=== PATIENT | female | born 1975 | race Caucasian/White ===

== ENCOUNTER 2017-12-26 09:11 | Inpatient (IN) | payer MEDICAID, OTHER ==
[~2017-12-26] VITALS: Ht 167.6 cm; Wt 88.0 kg
--- NOTE | 2017-12-26 09:12 | ER Report ---
History and Physical Time Seen By MD: 09:27 HPI/ROS CHIEF COMPLAINT: Abdominal pain HISTORY OF PRESENT ILLNESS: Patient is a 42-year-old female who is status post gastric bypass that was performed approximately 8 years ago she subsequently had an intestinal obstruction and required surgical treatment at that time. She she's been having episodes of abdominal pain however this morning she has severe epigastric pain associated with nausea no vomiting. She states this feels similar to her prior obstruction. She denies any chest pain or shortness of breath. She denies fevers or chills. REVIEW OF SYSTEMS: Constitutional: No fever, no chills. Eyes: No discharge. ENT: No sore throat. Cardiovascular: No chest pain, no palpitations. Respiratory: No cough, no shortness of breath. Gastrointestinal: Epigastric abdominal pain Genitourinary: No hematuria. Musculoskeletal: No back pain. Skin: No rashes. Neurological: No headache. Allergies: Coded Allergies: NSAIDS (Non-Steroidal Anti-Inflamma (Verified Allergy, Mild, NAUSEA/VOMITING, 03/10/15) Past Medical/Surgical History Patient has a past medical and surgical history of anemia, GI bleed, gastric bypass. Hx Smoking: No Exposure to Second Hand Smoke?: No Hx Substance Use Disorder: No Constitutional Vital Sign - Last 24 Hours 12/26/17 09:19 Temp 97.5 Pulse 83 Resp 18 B/P (MAP) 128/82 Pulse Ox 94 O2 Delivery Room Air Physical Exam General Appearance: Awake alert nontoxic no signs of respiratory distress. Eyes: Pupils equal and round no pallor or injection. ENT, Mouth: Mucous membranes are moist. Respiratory: There are no retractions, lungs are clear to auscultation. Cardiovascular: Regular rate and rhythm. Gastrointestinal: Epigastric abdominal pain to palpation. Neurological: Awake and alert Skin: Warm and dry, no rashes. Musculoskeletal: Neck is supple non tender. Extremities are nontender, nonswollen and have full range of motion. Medical Decision Making Data Points Result Diagram: 12/26/1721 12/26/17 0921 Laboratory Hematology Test 12/26/17 09:21 12/26/17 11:05 Red Blood Count 5.31 M/uL (4.17-5.56) Mean Corpuscular Volume 80.2 fL (80.0-96.0) Mean Corpuscular Hemoglobin 26.9 pg (26.0-33.0) Mean Corpuscular Hemoglobin Concent 33.6 g/dL (32.0-36.0) Red Cell Distribution Width 14.0 % (11.5-14.5) Mean Platelet Volume 9.7 fL (7.2-11.1) Neutrophils (%) (Auto) 56.9 % (39.4-72.5) Lymphocytes (%) (Auto) 32.7 % (17.6-49.6) Monocytes (%) (Auto) 6.7 % (4.1-12.4) Eosinophils (%) (Auto) 2.7 % (0.4-6.7) Basophils (%) (Auto) 1.0 % (0.3-1.4) Nucleated RBC Relative Count (auto) 0.0 /100WBC Neutrophils # (Auto) 3.8 K/uL (2.0-7.4) Lymphocytes # (Auto) 2.2 K/uL (1.3-3.6) Monocytes # (Auto) 0.4 K/uL (0.3-1.0) Eosinophils # (Auto) 0.2 K/uL (0.0-0.5) Basophils # (Auto) 0.1 K/uL (0.0-0.1) Nucleated RBC Absolute Count (auto) 0.00 K/uL Peripheral Blood Smear No Y/N Sodium Level 140 mmol/L (137-145) Potassium Level 4.0 mmol/L (3.5-5.0) Chloride Level 108 mmol/L (98-107) Carbon Dioxide Level 20 mmol/L (22-31) Blood Urea Nitrogen 15 mg/dl (7-18) Creatinine 0.70 mg/dl (0.52-1.04) Glomerular Filtration Rate Calc > 60.0 Random Glucose 91 mg/dl (75-110) Calcium Level 9.1 mg/dl (8.4-10.2) Total Bilirubin 0.5 mg/dl (0.2-1.3) Aspartate Amino Transf (AST/SGOT) 20 U/L (0-35) Alanine Aminotransferase (ALT/SGPT) 23 U/L (0-56) Alkaline Phosphatase 70 U/L (0-126) Total Protein 7.2 g/dl (6.3-8.2) Albumin 4.3 g/dl (3.5-5.0) Lipase 224 U/L (23-300) Human Chorionic Gonadotropin, Qual Negative (NEGATIVE) Urine Color Straw Urine Clarity Clear Urine pH 5.0 pH (4.8-9.5) Urine Specific [place] 1.051 Urine Protein Negative mg/dL (NEGATIVE) Urine Glucose (UA) Negative mg/dL (NEGATIVE) Urine Ketones Negative mg/dL (NEGATIVE) Urine Blood Negative (NEGATIVE) Urine Nitrite Negative (NEGATIVE) Urine Bilirubin Negative (NEGATIVE) Urine Urobilinogen Negative mg/dL (0.2-1.9) Urine Leukocyte Esterase Trace (NEGATIVE) Urine RBC 3 /HPF (0-2/HPF) Urine WBC <1 /HPF (0-5/HPF) Urine Squamous Epithelial Cells Many /LPF (</=FEW) Urine Bacteria Few /HPF (NONE-FEW) Urine Mucus None /HPF (NONE-FEW) Chemistry Test 12/26/17 09:21 12/26/17 11:05 White Blood Count 6.6 k/uL (4.5-11.0) Red Blood Count 5.31 M/uL (4.17-5.56) Hemoglobin 14.3 g/dL (12.0-16.0) Hematocrit 42.6 % (34.0-47.0) Mean Corpuscular Volume 80.2 fL (80.0-96.0) Mean Corpuscular Hemoglobin 26.9 pg (26.0-33.0) Mean Corpuscular Hemoglobin Concent 33.6 g/dL (32.0-36.0) Red Cell Distribution Width 14.0 % (11.5-14.5) Platelet Count 235 K/uL (150-450) Mean Platelet Volume 9.7 fL (7.2-11.1) Neutrophils (%) (Auto) 56.9 % (39.4-72.5) Lymphocytes (%) (Auto) 32.7 % (17.6-49.6) Monocytes (%) (Auto) 6.7 % (4.1-12.4) Eosinophils (%) (Auto) 2.7 % (0.4-6.7) Basophils (%) (Auto) 1.0 % (0.3-1.4) Nucleated RBC Relative Count (auto) 0.0 /100WBC Neutrophils # (Auto) 3.8 K/uL (2.0-7.4) Lymphocytes # (Auto) 2.2 K/uL (1.3-3.6) Monocytes # (Auto) 0.4 K/uL (0.3-1.0) Eosinophils # (Auto) 0.2 K/uL (0.0-0.5) Basophils # (Auto) 0.1 K/uL (0.0-0.1) Nucleated RBC Absolute Count (auto) 0.00 K/uL Peripheral Blood Smear No Y/N Glomerular Filtration Rate Calc > 60.0 Calcium Level 9.1 mg/dl (8.4-10.2) Total Bilirubin 0.5 mg/dl (0.2-1.3) Aspartate Amino Transf (AST/SGOT) 20 U/L (0-35) Alanine Aminotransferase (ALT/SGPT) 23 U/L (0-56) Alkaline Phosphatase 70 U/L (0-126) Total Protein 7.2 g/dl (6.3-8.2) Albumin 4.3 g/dl (3.5-5.0) Lipase 224 U/L (23-300) Human Chorionic Gonadotropin, Qual Negative (NEGATIVE) Urine Color Straw Urine Clarity Clear Urine pH 5.0 pH (4.8-9.5) Urine Specific [place] 1.051 Urine Protein Negative mg/dL (NEGATIVE) Urine Glucose (UA) Negative mg/dL (NEGATIVE) Urine Ketones Negative mg/dL (NEGATIVE) Urine Blood Negative (NEGATIVE) Urine Nitrite Negative (NEGATIVE) Urine Bilirubin Negative (NEGATIVE) Urine Urobilinogen Negative mg/dL (0.2-1.9) Urine Leukocyte Esterase Trace (NEGATIVE) Urine RBC 3 /HPF (0-2/HPF) Urine WBC <1 /HPF (0-5/HPF) Urine Squamous Epithelial Cells Many /LPF (</=FEW) Urine Bacteria Few /HPF (NONE-FEW) Urine Mucus None /HPF (NONE-FEW) Urinalysis Test 12/26/17 11:05 Urine Color Straw Urine Clarity Clear Urine pH 5.0 pH (4.8-9.5) Urine Specific [place] 1.051 Urine Protein Negative mg/dL (NEGATIVE) Urine Glucose (UA) Negative mg/dL (NEGATIVE) Urine Ketones Negative mg/dL (NEGATIVE) Urine Blood Negative (NEGATIVE) Urine Nitrite Negative (NEGATIVE) Urine Bilirubin Negative (NEGATIVE) Urine Urobilinogen Negative mg/dL (0.2-1.9) Urine Leukocyte Esterase Trace (NEGATIVE) Urine RBC 3 /HPF (0-2/HPF) Urine WBC <1 /HPF (0-5/HPF) Urine Squamous Epithelial Cells Many /LPF (</=FEW) Urine Bacteria Few /HPF (NONE-FEW) Urine Mucus None /HPF (NONE-FEW) EKG/Imaging Imaging FACILITY: [facility] PATIENT NAME: Dayanara Vidales : 1975 MR: [id number] V: [id number] EXAM DATE: ORDERING PHYSICIAN: JAIRO CARRANZA TECHNOLOGIST: Location: [facility] [place] Patient: Dayanara Vidales : 1975 Visit/Account:[id number] Date of Sevice: 12/26/2017 EXAMINATION: CT Abdomen and Pelvis With Contrast 12/26/2017 9:28 AM HISTORY: ab pain; hx gastric bypass TECHNIQUE: Spiral scan was through the abdomen and pelvis during injection of nonionic iodinated intravenous contrast. Contrast: 75 mL of IV Isovue 370. One of the following dose optimization techniques was utilized in the performance of this exam: Automated exposure control; adjustment of the mA and/or kV according to the patient's size; or use of an iterative reconstruction technique. Specific details can be referenced in the facility's radiology CT exam operational policy. COMPARISON STUDIES: 03/10/2015. FINDINGS: Liver / biliary: Prior cholecystectomy. No acute finding. Liver is borderline prominent. Pancreas: negative Spleen: negative Adrenal glands: negative Kidneys / retroperitoneum: negative Pelvic structures: Prior hysterectomy. Normal functional follicles in the left ovary. Right ovary may be absent. Bowel / peritoneum / mesenteries: Previous gastric bypass. Unremarkable post bypass appearance in the left upper quadrant. There are disproportionally prominent loops of small bowel in the lower midabdomen which contain fluid and food material. There is a transition from fluid-filled containing bowel to a short segment of collapsed distal ileum just before the ileocecal valve and twisting or overlying of mesentery associated with this. Cecum and ileocecal valve are in the right midabdomen, but in a similar position to previous consistent with a mobile cecum rather than a volvulus. Normal appendix. There is fecal material in the colon. No ascites or free air. Vessels: negative Musculoskeletal / Body wall: Eventration in the ventral upper abdominal wall without misha hernia. Tiny fatty umbilical hernia. Lymph node assessment: negative Lower chest: negative IMPRESSION: 1. Previous gastric bypass. 2. Mildly prominent fluid containing distal small bowel loops with transition along the terminal ileum before the ileocecal valve associated with twisting or whirling of the mesentery consistent with early or incomplete mechanical obstruction since there is still a fair amount of fecal material in the colon. There is no similar proximal transition to clearly indicate that this is a closed loop process. Report Dictated By: Matteo Chavarria MD at 12/26/2017 10:29 AM Report E-Signed By: Matteo Chavarria MD at 12/26/2017 10:45 AM WSN:[email or web address] ED Course/Re-evaluation Clinical Indication for ER IV: Hydration, IV Access ED Course 12/26/2017 9:34:09 am plan at this time will be abdominal workup including CT scan of the abdomen and pelvis. I will make the patient nothing by mouth. We'll give IV fluids, Zofran and pain medication. Re-evaluation Patient with recurring pain and nausea will premedicate. CT scan shows early partial small bowel instruction we'll admit to medicine. Decision to Disposition Date: Dec 26, 2017 Decision to Disposition Time: 11:06 Depart Departure Latest Vital Signs Vital Signs Date Time Temp Pulse Resp B/P (MAP) Pulse Ox O2 Delivery O2 Flow Rate FiO2 12/26/17 09:19 97.5 83 18 128/82 94 Room Air Impression: Primary Impression: Partial small bowel obstruction Condition: Condition Unchanged Disposition: Admitted from ER (to [facility]) JAIRO CARRANZA MD Dec 26, 2017 09:12
[2017-12-26] MEDS ORDERED: NS(*) 0.9% 1000 ML BAG 1,000 ML IV ONE (09:28)
[2017-12-26] MEDS ORDERED: MORPHINE 4 MG/ML SDV IVP ONE ×4 (09:30→11:55)
[2017-12-26] MEDS ORDERED: ONDANSETRON 4 MG/2 ML VIAL IVP ONE (09:30)
[2017-12-26 09:38] LABS: PLATELET COUNT, AUTOMATED 235 K/uL (150-450)
[2017-12-26] MEDS ORDERED: IOPAMIDOL 76% 75 ML INFUS BTL 75 ML ONE (09:41)
[2017-12-26] MEDS ORDERED: DICYCLOMINE HCL 10 MG CAP PO ONE (10:35)
[2017-12-26] MEDS ORDERED: DICYCLOMINE HCL 10 MG CAP ONE (10:38)
--- NOTE | 2017-12-26 10:49 | RADIOLOGY IMAGING REPORT ---
FACILITY: [facility] - [place] PATIENT NAME: Dayanara Vidales : 1975 MR: [id number] V: [id number] EXAM DATE: ORDERING PHYSICIAN: JAIRO CARRANZA TECHNOLOGIST: [facility] Patient: Dayanara Vidales : 1975 Visit/Account:[id number] Date of Sevice: 12/26/2017 EXAMINATION: CT Abdomen and Pelvis With Contrast 12/26/2017 9:28 AM HISTORY: ab pain; hx gastric bypass TECHNIQUE: Spiral scan was through the abdomen and pelvis during injection of nonionic iodinated in travenous contrast. Contrast: 75 mL of IV Isovue 370. One of the following dose optimization techniques was utilized in the performance of this exam: Autom ated exposure control; adjustment of the mA and/or kV according to the patient's size; or use of an i terative reconstruction technique. Specific details can be referenced in the facility's radiology C T exam operational policy. COMPARISON STUDIES: 03/10/2015. FINDINGS: Liver / biliary: Prior cholecystectomy. No acute finding. Liver is borderline prominent. Pancreas: negative Spleen: negative Adrenal glands: negative Kidneys / retroperitoneum: negative Pelvic structures: Prior hysterectomy. Normal functional follicles in the left ovary. Right ovar y may be absent. Bowel / peritoneum / mesenteries: Previous gastric bypass. Unremarkable post bypass appearance in th e left upper quadrant. There are disproportionally prominent loops of small bowel in the lower midab domen which contain fluid and food material. There is a transition from fluid-filled containing tiesha l to a short segment of collapsed distal ileum just before the ileocecal valve and twisting or overly ing of mesentery associated with this. Cecum and ileocecal valve are in the right midabdomen, but in a similar position to previous consistent with a mobile cecum rather than a volvulus. Normal append ix. There is fecal material in the colon. No ascites or free air. Vessels: negative Musculoskeletal / Body wall: Eventration in the ventral upper abdominal wall without misha hernia. T iny fatty umbilical hernia. Lymph node assessment: negative Lower chest: negative IMPRESSION: 1. Previous gastric bypass. 2. Mildly prominent fluid containing distal small bowel loops with transition along the terminal ile um before the ileocecal valve associated with twisting or whirling of the mesentery consistent with e elijah or incomplete mechanical obstruction since there is still a fair amount of fecal material in the colon. There is no similar proximal transition to clearly indicate that this is a closed loop proce ss. Report Dictated By: Matteo Chavarria MD at 12/26/2017 10:29 AM Report E-Signed By: Matteo Chavarria MD at 12/26/2017 10:45 AM [id number]
[2017-12-26 12:14] VITALS: BP 113/92
[2017-12-26] MEDS ORDERED: TRAZ50TA34 PO (12:27)
[2017-12-26] MEDS ORDERED: BACL-1 PO (12:27)
[2017-12-26] MEDS ORDERED: PROMETHAZINE 25 MG/ML 1 ML AMP IVP PRN (13:25)
[2017-12-26] MEDS ORDERED: HYDROmorphone PCA 6 MG/30 ML IV PRN (13:25)
[2017-12-26] MEDS ORDERED: traZODone HCL 50 MG TAB PO PRN (13:25)
[2017-12-26] MEDS ORDERED: ONDANSETRON 4 MG/2 ML VIAL IVP PRN (13:25)
--- NOTE | 2017-12-26 13:44 | History & Physical ---
History of Present Illness Chief Complaint abdominal pain, vomiting History of Present Illness She is a 42-year-old female who presented to the emergency department with abdominal pain, nausea and vomiting which started this morning. She states that she has had diarrhea for the last week, but denies abdominal pain until this morning. She reports a history of gastric bypass eight years ago. She did have a surgery on her bowels six years ago, because they "busted open". She denies fever, chills, chest pain or shortness of breath. She was recommended for admission. History Problems: (1) History of gastric bypass Status: Resolved Home Meds Reported Medications Baclofen (BACLOFEN) 10 Mg Tablet, 30 MG PO TID PRN for PAIN, #30 TAB 12/26/17 Trazodone Hcl (TRAZODONE HCL) 50 Mg Tablet, 50 MG PO QHS 12/26/17 Allergies: Coded Allergies: NSAIDS (Non-Steroidal Anti-Inflamma (Verified Allergy, Mild, NAUSEA/VOMITING, 03/10/15) Patient History: FH: diabetes mellitus MOTHER FH: heart attack MOTHER FATHER FH: stroke MOTHER Pacemaker FATHER Hx Smoking: No Exposure to Second Hand Smoke?: No Caffeine Intake: Tea Caffeine/Cups Per Day: "1 gallon a day" Hx Alcohol Use: No Hx Substance Use Disorder: No Review of Systems All Systems Reviewed/Normal: Yes, Except as Noted Gastrointestinal: Nausea, Vomiting, Abdominal Pain Exam Vital Signs Vital Signs Date Time Temp Pulse Resp B/P (MAP) Pulse Ox O2 Delivery O2 Flow Rate FiO2 12/26/17 12:14 97.6 60 16 113/92 (99) 94 Room Air General Appearance: Alert, Awake, No Acute Distress, Afebrile Neuro: No Gross deficits Cardiovascular: Regular Rate and Rhythm Respiratory: No Respiratory Distress, Clear to Auscultation GI: Other (tender upon palpation to epigastric region) Extremities: Warm, Perfused; No Edema Psych: Alert & Oriented X3, Appropriate Mood & Affect Medical Decision Making Data Points Result Diagram: 12/26/1792012/26/17920 EKG / Imaging Imaging FACILITY: [facility] PATIENT NAME: Dayanara Vidales : 1975 MR: [id number] V: [id number] EXAM DATE: ORDERING PHYSICIAN: JAIRO CARRANZA TECHNOLOGIST: Location: [facility] - [place] Patient: Dayanara Vidales : 1975 Visit/Account:[id number] Date of Sevice: 12/26/2017 EXAMINATION: CT Abdomen and Pelvis With Contrast 12/26/2017 9:28 AM HISTORY: ab pain; hx gastric bypass TECHNIQUE: Spiral scan was through the abdomen and pelvis during injection of nonionic iodinated intravenous contrast. Contrast: 75 mL of IV Isovue 370. One of the following dose optimization techniques was utilized in the performance of this exam: Automated exposure control; adjustment of the mA and/or kV according to the patient's size; or use of an iterative reconstruction technique. Specific details can be referenced in the facility's radiology CT exam operational policy. COMPARISON STUDIES: 03/10/2015. FINDINGS: Liver / biliary: Prior cholecystectomy. No acute finding. Liver is borderline prominent. Pancreas: negative Spleen: negative Adrenal glands: negative Kidneys / retroperitoneum: negative Pelvic structures: Prior hysterectomy. Normal functional follicles in the left ovary. Right ovary may be absent. Bowel / peritoneum / mesenteries: Previous gastric bypass. Unremarkable post bypass appearance in the left upper quadrant. There are disproportionally prominent loops of small bowel in the lower midabdomen which contain fluid and food material. There is a transition from fluid-filled containing bowel to a short segment of collapsed distal ileum just before the ileocecal valve and twisting or overlying of mesentery associated with this. Cecum and ileocecal valve are in the right midabdomen, but in a similar position to previous consistent with a mobile cecum rather than a volvulus. Normal appendix. There is fecal material in the colon. No ascites or free air. Vessels: negative Musculoskeletal / Body wall: Eventration in the ventral upper abdominal wall without misha hernia. Tiny fatty umbilical hernia. Lymph node assessment: negative Lower chest: negative IMPRESSION: 1. Previous gastric bypass. 2. Mildly prominent fluid containing distal small bowel loops with transition along the terminal ileum before the ileocecal valve associated with twisting or whirling of the mesentery consistent with early or incomplete mechanical obstruction since there is still a fair amount of fecal material in the colon. There is no similar proximal transition to clearly indicate that this is a closed loop process. Report Dictated By: Matteo Chavarria MD at 12/26/2017 10:29 AM Report E-Signed By: Matteo Chavarria MD at 12/26/2017 10:45 AM WSN:[email or web address] Assessment and Plan Problems: (1) Partial small bowel obstruction Status: Acute Assessment & Plan: She was admitted with partial small bowel obstruction. She w ill be placed NPO, given IV hydration, nausea and pain medications. She will get abdominal x-ray in the morning. We have consulted general surgery to give recommendations. (2) C6 cervical fracture Status: Chronic Assessment & Plan: She does take chronic Baclofen, as needed for pain. This has been held at this time. (3) Difficulty sleeping Status: Chronic Assessment & Plan: She does take Trazodone for sleep. This has been held at this time secondary to NPO status. Venous Thromboembolism Antithrombotics Is Pt On Any Antithrombotics?: Yes Exam Sepsis Risk: No Definite Risk ELLIE BETTS [employer]EARCHER Dec 26, 2017 13:44
[2017-12-26] MEDS: NS(*) 0.9% 1000 ML BAG 1,000 ML IV PRN (14:10)
--- NOTE | 2017-12-26 16:02 | CONSULTATION ---
EVENT DATE: December 26, 2017 CHIEF COMPLAINT Abdominal pain. HISTORY OF PRESENT ILLNESS This is a 42-year-old female who presented to the emergency department a few hours ago complaining of unrelenting abdominal pain since early this morning. The patient notes she has been having on and off such pain for about a year and a half. She says it has been occurring infrequently but in recent months has been occurring as much as three times per week. It typically will last a half an hour but today has persisted for numerous hours and was associated with nausea and vomiting. The patient does note a good appetite most of the time. The patient reports no bowel movement or flatus today. PAST MEDICAL HISTORY 1. History of anxiety previously treated with prescription medicines but with little benefit. PAST SURGICAL HISTORY 1. Cholecystectomy. 2. Corneal transplant. 3. Peptic ulcer disease diagnosed by EGD about 2 years ago. 4. Gastric bypass 7-8 years ago, laparoscopic. 5. Per patient: "Rupture" which required exploratory laparotomy for repair. This was 2-3 years ago. CURRENT MEDICATIONS 1. Baclofen 30 mg p.o. t.i.d. p.r.n. pain. 2. Trazodone 50 mg p.o. q nightly. ALLERGIES NSAIDs (mild, nausea/vomiting). SOCIAL HISTORY The patient denies use of tobacco and alcohol. She does admit to smoking marijuana several times a week but claims that she does this only for symptomatic relief. FAMILY HISTORY Positive for diabetes mellitus, VA, and CVA. REVIEW OF SYSTEMS CONSTITUTIONAL: No fevers. ENT/MOUTH: No dysphagia. RESPIRATORY: No cough or dyspnea. CARDIOVASCULAR: No chest pain. GASTROINTESTINAL: As noted above. The patient also notes that she has frequent diarrhea which she can generally relate to food. She also notes occasional blood in the stool. INTEGUMENTARY: No rashes. NEUROLOGICAL: History of migraines. PSYCHIATRIC: History of anxiety. MUSCULOSKELETAL: No trauma, no joint swelling. ENDOCRINE: No heat or cold intolerance. HEMATOLOGIC: No coagulopathy. PHYSICAL EXAMINATION GENERAL: This is a well-developed, well nourished, middle aged, female in no acute distress. VITAL SIGNS: Temperature 97.6 orally, pulse is 60, respiratory rate 16, blood pressure 113/92 O2 saturation is 94% on room air. HEAD/NECK: Head is atraumatic and normocephalic. Neck is unremarkable with thyroid showing normal size and texture. EYES: Pupils are equally reactive bilaterally. Sclerae are anicteric. Conjunctivae are not pale. ENT/MOUTH: External ears and nose appear normal. Oropharynx is unremarkable. RESPIRATORY: Lungs are clear to auscultation bilaterally. CARDIOVASCULAR: Heart has a regular rate and rhythm without murmur or tachycardia. ABDOMEN: Bowel sounds are positive but diminished. The abdomen is slightly distended but soft. There is diffuse mild tenderness with no guarding. There is a well healed vertical midline incision in the epigastric region. INTEGUMENTARY: Skin is clear, warm, and dry. EXTREMITIES: Limbs without deformities. Legs show no edema. NEUROLOGICAL: Hand weight trainer are equal and strong bilaterally. PSYCHIATRIC: Patient is awake and alert. She is oriented. She responds appropriately throughout the exam. LABORATORY AND RADIOLOGY WBC is 6.6 with a normal differential, hemoglobin 14.3, hematocrit 42.6, platelet count is 235,000. Blood chemistries on the CMP are all normal except for a chloride 108, CO2 20. CT scan of the abdomen and pelvis with contrast was done today and this shows evidence of previous gastric surgery and cholecystectomy. There are "disproportionately prominent loops of small bowel in the lower mid abdomen which contain fluid and food material. There is a transition from fluid filled containing bowel to a short segment of collapsed distal ileum, just before the ileocecal valve and twisting or overlying of mesentery associated with this." There is fecal material noted in the colon. No ascites or free air is seen. ASSESSMENT Partial small bowel obstruction probably secondary to adhesions from previous operations. PLAN The patient will be treated conservatively with IV fluids and bowel rest. KIERSTEN
[2017-12-26 16:47] VITALS: BP 120/81
[2017-12-26] MEDS ORDERED: ACETAMINOPHEN(*)1000 MG/100 ML 100 ML IVPB ONE (18:40)
[2017-12-26 20:24] VITALS: BP 109/78
[2017-12-26 22:19] VITALS: BP 111/84
[2017-12-27] MEDS: NS(*) 0.9% 1000 ML BAG 1,000 ML IV PRN (01:19)
[2017-12-27 02:49] VITALS: BP 95/63
[2017-12-27 05:30] LABS: PLATELET COUNT, AUTOMATED 191 K/uL (150-450)
--- NOTE | 2017-12-27 06:13 | RADIOLOGY IMAGING REPORT ---
FACILITY: [facility] PATIENT NAME: Dayanara Vidales : 1975 MR: [id number] V: [id number] EXAM DATE: ORDERING PHYSICIAN: ELLIE BETTS TECHNOLOGIST: [place] [facility] [place]: Dayanara Vidales : 1975 Visit/Account:[id number] Date of Sevice: 12/27/2017 OBSTRUCTION SERIES: Indication: Small bowel obstruction on recent CT scan. Technique: Supine and erect views of the abdomen and a frontal view of the chest were obtained. Comparison: CT scan dated 12/26/2017. Findings: There are a few dilated small bowel loops in the right lower quadrant. The small bowel gas pattern is otherwise unremarkable. The colon is not dilated. The erect films demonstrate no free air under the diaphragm. Multiple surgical clips are present in the upper abdomen. The skeletal and soft tissue str uctures are unremarkable. The chest film demonstrates minimal linear atelectasis at the left base. The lungs are otherwise jack r. No pleural abnormalities are identified. The heart and mediastinal contours are within normal limi ts. The skeletal structures are intact. IMPRESSION: There is persistent evidence of dilated small bowel loops in the right lower quadrant. Th e gas pattern is otherwise unremarkable. There is no evidence of free air. Report Dictated By: Barber Glover MD at 12/27/2017 6:05 AM Report E-Signed By: Barber Glover MD at 12/27/2017 6:09 AM WSN:[id number]
[2017-12-27 07:39] VITALS: BP 99/63
[2017-12-27] MEDS ORDERED: ENOXAPARIN 40 MG/0.4ML SYR SC SCH (09:00)
--- NOTE | 2017-12-27 10:32 | PROGRESS NOTE ---
DATE: December 27, 2017 SUBJECTIVE The patient reports that she feels a little bit better. Pain is under good control with [employer] pump. She does report having better appetite than yesterday. There has been no bowel movement or flatus since admission. OBJECTIVE VITAL SIGNS: Temperature 98.4 orally, pulse rate is 71, respiratory rate is 13, blood pressure is 99/63, O2 saturation 90% on 1 liter nasal cannula. GENERAL: The patient is sitting up in bed in no distress at all and looks significantly more comfortable than yesterday. LUNGS: Clear to auscultation bilateral. CARDIOVASCULAR: The heart has a regular rate and rhythm without murmur or tachycardia. ABDOMEN: Bowel sounds are positive but diminished like yesterday. The abdomen is slightly distended, it is soft. It is diffusely tympanitic. There is minimal tenderness; overall exam is little changed from yesterday. LABORATORY STUDIES WBC today is 3.9 with a normal differential. BMP shows all chemistries to be within normal limits. ASSESSMENT Partial small bowel obstruction. There has been some improvement from yesterday in the form of return of appetite. However, there are still findings suggesting that the obstruction has not fully cleared. PLAN Continue present therapy of bowel rest with IV fluids. I will see the patient again tomorrow and make further plans from there. KIERSTEN
--- NOTE | 2017-12-27 10:37 | Hospitalist Depart ---
Discharge Summary Reason for Hosp/Final Diag: (1) Partial small bowel obstruction Status: Acute Hospital Course & Plan: She was admitted for a partial small bowel obstruction. We did place her on NPO status and general surgery was consulted. Today she requested to leave against medical advice. We did explain the risks of leaving before her issue was resolved, but she continued to state that she would be more comfortable at home and refused to speak with the surgeon prior to leaving. (2) C6 cervical fracture Status: Chronic Hospital Course & Plan: She does take chronic Baclofen, as needed for pain. (3) Difficulty sleeping Status: Chronic Hospital Course & Plan: She does take Trazodone for sleep. Departure Weight (Pounds): 194 Result Diagram: 12/27/1751112/27/17511 Condition: No Change Discharge: Home Discharge Instructions Home Meds Reported Medications Baclofen (BACLOFEN) 10 Mg Tablet, 30 MG PO TID PRN for PAIN, #30 TAB 12/26/17 Trazodone Hcl (TRAZODONE HCL) 50 Mg Tablet, 50 MG PO QHS 12/26/17 Special Instructions: pt leaving AMA Venous Thromboembolism Antithrombotics Is Pt On Any Antithrombotics?: Yes BRIA HILTON DO Dec 27, 2017 10:37
[2017-12-27 11:28] VITALS: Ht 167.6 cm; Wt 88.0 kg
== END 2017-12-27 10:17 | disposition left against medical advice (07) | DRG 390 ==
LOC: ER 09:14 → MED 11:31
PROVIDERS: ADMIT Internal Medicine; ATTEND Internal Medicine
DX: K56.51 Intestinal adhesions [bands], with partial obstruction (principal); G47.00 Insomnia, unspecified; K27.9 Peptic ulcer, site unspecified, unspecified as acute or chronic, without hemorrhage or perforation; G89.29 Other chronic pain; Z90.49 Acquired absence of other specified parts of digestive tract; Z98.84 Bariatric surgery status; Z53.29 Procedure and treatment not carried out because of patient's decision for other reasons; Z90.710 Acquired absence of both cervix and uterus
CPT/HCPCS: 36415; 74022; 74177; 81001; 82040; 82247; 82310; 82374; 82435; 82565; 82947; 83690; 84075; 84132; 84155; 84295; 84450; 84460; 84520; 84703; 85025; 96361; 96374; 96375; 96376; 99284; J0131; J1170; J1650; J2270; J2405; J2550; J7030; Q9967

== ENCOUNTER 2018-03-15 13:22 | Emergency (ER) | payer MEDICAID ==
[2017-12-27 11:28] VITALS: Wt 88.0 kg
[~2018-03-15 13:22] MED LIST: BACL-1 PO; TRAZ50TA34 PO
--- NOTE | 2018-03-15 13:25 | ER Report ---
History and Physical Time Seen By MD: 13:24 HPI/ROS CHIEF COMPLAINT: Abdominal pain, diarrhea, status post gastric bypass revision a couple weeks ago. HISTORY OF PRESENT ILLNESS: Patient is a 42-year-old female here with diffuse crampy abdominal pains, chills, nausea and diarrhea for the past several weeks. Patient recently had a gastric bypass revision and is concerned that she has a GI infection. Patient is afebrile, hemodynamically stable at time of evaluation. She does report having intermittent dark stools but denies blood in the urine or bright red blood per rectum. REVIEW OF SYSTEMS: Constitutional: No fever, + chills. Eyes: No discharge. ENT: No sore throat. Cardiovascular: No chest pain, no palpitations. Respiratory: No cough, no shortness of breath. Gastrointestinal: + crampy abd pain, diffuse, worse in LUQ, + intermittent dark stools Genitourinary: No hematuria. Musculoskeletal: No back pain. Skin: No rashes. Neurological: No headache. Allergies: Coded Allergies: NSAIDS (Non-Steroidal Anti-Inflamma (Verified Allergy, Mild, NAUSEA/VOMITING, 03/15/18) Home Meds Active Scripts Ondansetron (ONDANSETRON ODT) 4 Mg Tab.rapdis, 4 MG PO Q12H, #30 TAB Prov:HARPREET BRAUN Abe DO 03/15/18 Reported Medications Ferrous Sulfate (IRON) 325 Mg Tablet, 325 MG PO DAILY 03/15/18 Escitalopram Oxalate (LEXAPRO) 20 Mg Tablet, 10 MG PO QDAY, TAB 03/15/18 Baclofen (BACLOFEN) 10 Mg Tablet, 30 MG PO TID PRN for PAIN, #30 TAB 12/26/17 Trazodone Hcl (TRAZODONE HCL) 50 Mg Tablet, 50 MG PO QHS 12/26/17 Hx Smoking: No Exposure to Second Hand Smoke?: No Hx Substance Use Disorder: No Hx Alcohol Use: No Constitutional Vital Sign - Last 24 Hours 03/15/18 13:27 Temp 98.0 Pulse 66 Resp 18 B/P (MAP) 128/83 Pulse Ox 95 O2 Delivery Room Air Physical Exam General Appearance: The patient is alert, has no immediate need for airway protection and no signs of toxicity. NAD Eyes: Pupils equal and round no pallor or injection. ENT, Mouth: Mucous membranes are moist. Respiratory: There are no retractions, lungs are clear to auscultation. Cardiovascular: Regular rate and rhythm. Gastrointestinal: Abdomen is soft and mildly tender in all quadrants, no masses, bowel sounds normal. Neurological: No focal deficits Skin: Warm and dry, no rashes. Musculoskeletal: Neck is supple non tender. Extremities are nontender, nonswollen and have full range of motion. DIFFERENTIAL DIAGNOSIS: After history and physical exam differential diagnosis was considered for abdominal pain including but not limited to appendicitis, cholecystitis, gastritis and urinary tract infection, post op infection Medical Decision Making Data Points Result Diagram: 03/15/18 1338 03/15/18 1338 Laboratory Hematology Test 03/15/18 13:29 03/15/18 13:38 Urine Color Yellow Urine Clarity Cloudy Urine pH 5.0 pH (4.8-9.5) Urine Specific [place] 1.024 Urine Protein Negative mg/dL (NEGATIVE) Urine Glucose (UA) Negative mg/dL (NEGATIVE) Urine Ketones Negative mg/dL (NEGATIVE) Urine Blood Negative (NEGATIVE) Urine Nitrite Negative (NEGATIVE) Urine Bilirubin Negative (NEGATIVE) Urine Urobilinogen 2.0 mg/dL (0.2-1.9) Urine Leukocyte Esterase Negative (NEGATIVE) Urine RBC 15 /HPF (0-2/HPF) Urine WBC 7 /HPF (0-5/HPF) Urine Squamous Epithelial Cells Many /LPF (</=FEW) Urine Calcium Oxalate Crystals Moderate /HPF (NONE) Urine Bacteria Negative /HPF (NONE-FEW) Urine Mucus Few /HPF (NONE-FEW) Red Blood Count 4.98 M/uL (4.17-5.56) Mean Corpuscular Volume 81.7 fL (80.0-96.0) Mean Corpuscular Hemoglobin 26.9 pg (26.0-33.0) Mean Corpuscular Hemoglobin Concent 32.9 g/dL (32.0-36.0) Red Cell Distribution Width 13.8 % (11.5-14.5) Mean Platelet Volume 9.7 fL (7.2-11.1) Neutrophils (%) (Auto) 69.0 % (39.4-72.5) Lymphocytes (%) (Auto) 22.4 % (17.6-49.6) Monocytes (%) (Auto) 5.4 % (4.1-12.4) Eosinophils (%) (Auto) 2.5 % (0.4-6.7) Basophils (%) (Auto) 0.7 % (0.3-1.4) Nucleated RBC Relative Count (auto) 0.1 /100WBC Neutrophils # (Auto) 6.4 K/uL (2.0-7.4) Lymphocytes # (Auto) 2.1 K/uL (1.3-3.6) Monocytes # (Auto) 0.5 K/uL (0.3-1.0) Eosinophils # (Auto) 0.2 K/uL (0.0-0.5) Basophils # (Auto) 0.1 K/uL (0.0-0.1) Nucleated RBC Absolute Count (auto) 0.01 K/uL Prothrombin Time 13.3 seconds (12.0-14.4) Prothromb Time International Ratio 1.01 Activated Partial Thromboplast Time 28 seconds (23-35) Sodium Level 141 mmol/L (137-145) Potassium Level 4.2 mmol/L (3.5-5.0) Chloride Level 109 mmol/L (98-107) Carbon Dioxide Level 23 mmol/L (22-31) Blood Urea Nitrogen 14 mg/dl (7-18) Creatinine 0.70 mg/dl (0.52-1.04) Glomerular Filtration Rate Calc > 60.0 Random Glucose 89 mg/dl (75-110) Calcium Level 8.9 mg/dl (8.4-10.2) Total Bilirubin 0.2 mg/dl (0.2-1.3) Aspartate Amino Transf (AST/SGOT) 23 U/L (0-35) Alanine Aminotransferase (ALT/SGPT) 22 U/L (0-56) Alkaline Phosphatase 67 U/L (0-126) Total Protein 7.1 g/dl (6.3-8.2) Albumin 4.0 g/dl (3.5-5.0) Lipase 357 U/L (23-300) Human Chorionic Gonadotropin, Qual Negative (NEGATIVE) Chemistry Test 03/15/18 13:29 03/15/18 13:38 Urine Color Yellow Urine Clarity Cloudy Urine pH 5.0 pH (4.8-9.5) Urine Specific [place] 1.024 Urine Protein Negative mg/dL (NEGATIVE) Urine Glucose (UA) Negative mg/dL (NEGATIVE) Urine Ketones Negative mg/dL (NEGATIVE) Urine Blood Negative (NEGATIVE) Urine Nitrite Negative (NEGATIVE) Urine Bilirubin Negative (NEGATIVE) Urine Urobilinogen 2.0 mg/dL (0.2-1.9) Urine Leukocyte Esterase Negative (NEGATIVE) Urine RBC 15 /HPF (0-2/HPF) Urine WBC 7 /HPF (0-5/HPF) Urine Squamous Epithelial Cells Many /LPF (</=FEW) Urine Calcium Oxalate Crystals Moderate /HPF (NONE) Urine Bacteria Negative /HPF (NONE-FEW) Urine Mucus Few /HPF (NONE-FEW) White Blood Count 9.3 k/uL (4.5-11.0) Red Blood Count 4.98 M/uL (4.17-5.56) Hemoglobin 13.4 g/dL (12.0-16.0) Hematocrit 40.7 % (34.0-47.0) Mean Corpuscular Volume 81.7 fL (80.0-96.0) Mean Corpuscular Hemoglobin 26.9 pg (26.0-33.0) Mean Corpuscular Hemoglobin Concent 32.9 g/dL (32.0-36.0) Red Cell Distribution Width 13.8 % (11.5-14.5) Platelet Count 256 K/uL (150-450) Mean Platelet Volume 9.7 fL (7.2-11.1) Neutrophils (%) (Auto) 69.0 % (39.4-72.5) Lymphocytes (%) (Auto) 22.4 % (17.6-49.6) Monocytes (%) (Auto) 5.4 % (4.1-12.4) Eosinophils (%) (Auto) 2.5 % (0.4-6.7) Basophils (%) (Auto) 0.7 % (0.3-1.4) Nucleated RBC Relative Count (auto) 0.1 /100WBC Neutrophils # (Auto) 6.4 K/uL (2.0-7.4) Lymphocytes # (Auto) 2.1 K/uL (1.3-3.6) Monocytes # (Auto) 0.5 K/uL (0.3-1.0) Eosinophils # (Auto) 0.2 K/uL (0.0-0.5) Basophils # (Auto) 0.1 K/uL (0.0-0.1) Nucleated RBC Absolute Count (auto) 0.01 K/uL Prothrombin Time 13.3 seconds (12.0-14.4) Prothromb Time International Ratio 1.01 Activated Partial Thromboplast Time 28 seconds (23-35) Glomerular Filtration Rate Calc > 60.0 Calcium Level 8.9 mg/dl (8.4-10.2) Total Bilirubin 0.2 mg/dl (0.2-1.3) Aspartate Amino Transf (AST/SGOT) 23 U/L (0-35) Alanine Aminotransferase (ALT/SGPT) 22 U/L (0-56) Alkaline Phosphatase 67 U/L (0-126) Total Protein 7.1 g/dl (6.3-8.2) Albumin 4.0 g/dl (3.5-5.0) Lipase 357 U/L (23-300) Human Chorionic Gonadotropin, Qual Negative (NEGATIVE) Coagulation Test 03/15/18 13:38 Prothrombin Time 13.3 seconds Prothromb Time International Ratio 1.01 Activated Partial Thromboplast Time 28 seconds Urinalysis Test 03/15/18 13:29 Urine Color Yellow Urine Clarity Cloudy Urine pH 5.0 pH (4.8-9.5) Urine Specific [place] 1.024 Urine Protein Negative mg/dL (NEGATIVE) Urine Glucose (UA) Negative mg/dL (NEGATIVE) Urine Ketones Negative mg/dL (NEGATIVE) Urine Blood Negative (NEGATIVE) Urine Nitrite Negative (NEGATIVE) Urine Bilirubin Negative (NEGATIVE) Urine Urobilinogen 2.0 mg/dL (0.2-1.9) Urine Leukocyte Esterase Negative (NEGATIVE) Urine RBC 15 /HPF (0-2/HPF) Urine WBC 7 /HPF (0-5/HPF) Urine Squamous Epithelial Cells Many /LPF (</=FEW) Urine Calcium Oxalate Crystals Moderate /HPF (NONE) Urine Bacteria Negative /HPF (NONE-FEW) Urine Mucus Few /HPF (NONE-FEW) EKG/Imaging Imaging ABDOMEN/PELVIS WITH CONTRAST History: 42-year-old female status post gastric surgery now with abdominal pain.. Technique: CT images were obtained through the abdomen and pelvis with intravenous contrast using: Isovue-370 75 mls. Coronal and sagittal reformations were then created. One of the following dose optimization techniques was utilized in the performance of this exam: Automated exposure control; adjustment of the mA and/or kV according to the patient's size; or use of an iterative reconstruction technique. Specific details can be referenced in the facility's radiology CT exam operational policy. Comparison study: CT scan December 26, 2017. Findings: Lung bases: Negative Hepatobiliary: The liver is unremarkable. No focal lesions are seen. Surgical clips in the gallbladder fossa are related to prior cholecystectomy. Spleen: No splenic laceration or subcapsular hematoma.. Adrenals: Negative Pancreas: Negative. Kidneys/genitourinary/retroperitoneum: No findings of a solid or cystic mass. No findings of hydronephrosis or nephrolithiasis. Bowel/peritoneum/mesentery: There has been gastric resection and by history there has been redo. There appears to be a gastric jejunal anastomosis. Contrast flows from the stomach pouch which is diminished into the jejunum. The gastric remanent is filled with a small amount of fluid. There is a normal appendix in the right lower quadrant. There is no diverticulosis or diverticulitis. 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 Ovaries are not seen. Vessels: Negative. Lymph node: Negative. Body wall/bones: Negative IMPRESSION: 1. Patient status post gastric bypass with creation of a gastrojejunostomy and by history this is been revised. Contrast passes into the small gastric pouch and then into the jejunum readily. There is no abnormality. The gastric remanent is filled with a small amount of fluid. 2. Status post cholecystectomy. 3. No findings of free fluid or abscess in the abdomen. 4. The uterus is mildly retroverted and may be bicornuate. Correlation with clinical history is recommended however since this region is not well seen. ED Course/Re-evaluation ED Course Patient is a 42-year-old female here with complaints of crampy abdominal pain, diarrhea and a recent gastric bypass revision. Labs were remarkable for a mildly elevated lipase with no leukocytosis or electrolyte abnormalities. CT imaging wi th oral contrast and IV contrast showed no acute infectious etiology or blockages. Patient was given IV fluids, Zofran, fentanyl for symptomatic treatment and prescription for Zofran for outpatient treatment. Patient was advised to follow-up with her PCP and surgeon and return if she develop worseni ng pain, fevers, nausea, vomiting, blood in the stools or urine. She was stable at time of discharge. Decision to Disposition Date: Mar 15, 2018 Decision to Disposition Time: 15:27 Depart Departure Latest Vital Signs Vital Signs Date Time Temp Pulse Resp B/P (MAP) Pulse Ox O2 Delivery O2 Flow Rate FiO2 03/15/18 13:27 98.0 66 18 128/83 95 Room Air Impression: Primary Impression: Abdominal pain Condition: Improved Disposition: HOME OR SELF-CARE New Scripts Ondansetron (ONDANSETRON ODT) 4 Mg Tab.rapdis 4 MG PO Q12H, #30 TAB Prov: HARPREET BRAUN DO 03/15/18 Patient Instructions: Abdominal Pain (ED) Additional Instructions: Your CT imaging scan showed no signs of infection or acute abnormalities. Your labs were significant for an elevated lipase which is your pancreatic enzyme. Please drink plenty of water, you may take Zofran 1 tablet every 4-6 hours as needed for nausea and vomiting. Please return promptly if you develop fevers, worsening abdominal pains, inability to keep down fluids, blood in the stools or urine. Please follow-up with her family doctor in the next 3 days. HARPREET BRAUN DO Mar 15, 2018 13:25
[2018-03-15] MEDS ORDERED: ESCI20TA38 PO (13:29)
[2018-03-15] MEDS ORDERED: FERR325T24 PO (13:29)
[2018-03-15] MEDS ORDERED: fentaNYL CITR 100 MCG/2 ML AMP IVP ONE (13:35)
[2018-03-15] MEDS ORDERED: ONDANSETRON 4 MG/2 ML VIAL IVP ONE (13:35)
[2018-03-15] MEDS ORDERED: NS(*) 0.9% 1000 ML BAG 1,000 ML IV ONE (13:35)
[2018-03-15 13:44] LABS: PLATELET COUNT, AUTOMATED 256 K/uL (150-450)
[2018-03-15] MEDS ORDERED: IOPAMIDOL 76% 75 ML INFUS BTL 75 ML ONE (13:50)
[2018-03-15] MEDS ORDERED: DIATRIZOATE MEGL/DIATRIZOA SOD 367 MG/ML SOLN ONE (13:51)
[2018-03-15 14:10] LABS: INR 1.01
--- NOTE | 2018-03-15 14:35 | RADIOLOGY IMAGING REPORT ---
FACILITY: [facility] PATIENT NAME: Dayanara Vidales : 1975 MR: [id number] V: [id number] EXAM DATE: ORDERING PHYSICIAN: HARPREET BRAUN TECHNOLOGIST: Location: [facility] Patient: Dayanara Vidales : 1975 Visit/Account:[id number] Date of Sevice: 03/15/2018 ABDOMEN/PELVIS WITH CONTRAST History: 42-year-old female status post gastric surgery now with abdominal pain.. Technique: CT images were obtained through the abdomen and pelvis with intravenous contrast using: I sovue-370 75 mls. Coronal and sagittal reformations were then created. One of the following dose optimization techniques was utilized in the performance of this exam: Autom ated exposure control; adjustment of the mA and/or kV according to the patient's size; or use of an i terative reconstruction technique. Specific details can be referenced in the facility's radiology C T exam operational policy. Comparison study: CT scan December 26, 2017. Findings: Lung bases: Negative Hepatobiliary: The liver is unremarkable. No focal lesions are seen. Surgical clips in the gallbladde r fossa are related to prior cholecystectomy. Spleen: No splenic laceration or subcapsular hematoma.. Adrenals: Negative Pancreas: Negative. Kidneys/genitourinary/retroperitoneum: No findings of a solid or cystic mass. No findings of hydronep hrosis or nephrolithiasis. Bowel/peritoneum/mesentery: There has been gastric resection and by history there has been redo. Ther e appears to be a gastric jejunal anastomosis. Contrast flows from the stomach pouch which is diminis hed into the jejunum. The gastric remanent is filled with a small amount of fluid. There is a normal appendix in the right lower quadrant. There is no diverticulosis or diverticulitis. 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 Ovaries are not seen. Vessels: Negative. Lymph node: Negative. Body wall/bones: Negative IMPRESSION: 1. Patient status post gastric bypass with creation of a gastrojejunostomy and by history this is bee n revised. Contrast passes into the small gastric pouch and then into the jejunum readily. There is n o abnormality. The gastric remanent is filled with a small amount of fluid. 2. Status post cholecystectomy. 3. No findings of free fluid or abscess in the abdomen. 4. The uterus is mildly retroverted and may be bicornuate. Correlation with clinical history is recom mended however since this region is not well seen. Report Dictated By: Alberto Berg MD at 03/15/2018 2:25 PM Report E-Signed By: Alberto Berg MD at 03/15/2018 2:31 PM WSN:[id number]
[2018-03-15] MEDS ORDERED: ONDA4TAB9 PO (14:56)
[2018-03-15 15:30] VITALS: BP 104/70
== END 2018-03-15 15:50 | disposition home or self-care (01) ==
LOC: ER 13:39
DX: R10.84 Generalized abdominal pain (principal); Z98.84 Bariatric surgery status
CPT/HCPCS: 74177; 81001; 83690; 84703; 85025; 85610; 85730; 96361; 96374; 96375; 99284; J2405; J3010; J7030; Q9967; 82040; 82247; 82310; 82374; 82435; 82565; 82947; 84075; 84132; 84155; 84295; 84450; 84460; 84520

== ENCOUNTER 2018-09-16 11:22 | Emergency (ER) | payer MEDICAID ==
[2017-12-27 11:28] VITALS: Wt 86.2 kg
[~2018-09-16 11:22] MED LIST changes: +ESCI20TA38 PO; +FERR325T24 PO; +ONDA4TAB9 PO
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
[2018-09-16] MEDS ORDERED: DIPHTH/TETANUS/ACEL. PERTUSSIS IM ONLY ONE (11:35)
[2018-09-16] MEDS ORDERED: ceFAZolin(*) 2GM/D5W 50ML 50 ML IVPB ONE (11:55)
[2018-09-16 13:00] VITALS: BP 121/81
== END 2018-09-16 13:15 | disposition home or self-care (01) ==
LOC: ER 11:30
DX: T25.321A Burn of third degree of right foot, initial encounter (principal); X12.XXXA Contact with other hot fluids, initial encounter
CPT/HCPCS: 96365; 99285; J0690